=== PATIENT | male | born 1965 | race Caucasian/White ===

== ENCOUNTER 2023-12-30 07:08 | Emergency (ER) | payer BC, SELFPAY ==
[2023-12-30] VITALS (16 sets, daily range): BP systolic 101–198; BP diastolic 52–97; PULSE 46–58; RESP 16–24; TEMP 36.7; O2SAT 95–100; BMI 36.8
--- NOTE | 2023-12-30 07:13 | DI.RAD.S_ITS ---
PROCEDURE: XR CHEST 1V INDICATIONS: chest pain TECHNIQUE: One view of the chest was acquired. COMPARISON: None. FINDINGS: Surgical changes and devices: None. Lungs and pleura: Lungs are clear. No pleural effusions or pneumothorax. Mediastinum: Mediastinal contours appear normal. Heart size is normal. Bones and chest wall: No suspicious bony lesions. Overlying soft tissues appear unremarkable. IMPRESSION: No acute cardiopulmonary abnormality is seen. Dictated by: Harjit Toribio M.D. on 12/30/2023 at 8:57 Approved by: Harjit Toribio M.D. on 12/30/2023 at 8:57
--- NOTE | 2023-12-30 07:27 | ED_ITS ---
HPI - Chest Pain General Chief Complaint: Chest Pain Stated Complaint: chest pain, back pain Time Seen by Provider: 12/30/23 07:20 Source: patient Mode of arrival: Ambulatory Limitations: no limitations History of Present Illness HPI narrative: Patient is a 58-year-old male history of hypertension presenting today with chest pain. He reports that he is lost about 30 lb he has been doing really well with his diet last night he had pizza. Around 10:00 p.m. he started having chest pain and center of his chest radiating through to his back. He was unable to sleep last night could not get comfortable it is constant in nature. He feels a little nauseous no vomiting no significant shortness of breath. He has no known coronary artery disease he has never been a smoker. However his dad had his 1st heart attack in his 40s grandfather of a heart attack in his 50s. Related Data Allergies Allergy/AdvReac Type Severity Reaction Status Date / Time No Known Drug Allergies Allergy Verified 12/30/23 07:17 Patient History Social History Smoking Status: Never smoker Smoking Status: Never smoker Substance Use Type: does not use Exam Initial Vital Signs Initial Vital Signs: Vital Signs Pulse Oximetry 98 12/30/23 07:11 GENERAL: 58-year-old male appears uncomfortable sitting on edge of bed HEENT: Head atraumatic,EOMI, pupils reactive, face symmetric, moist mucous membranes CARDIOVASCULAR: Regular rate and rhythm without murmurs, rubs or gallops. RESPIRATORY: Breath sounds equal bilaterally, no wheezes rales or rhonchi. ABDOMEN: Soft, minimally tender epigastric region negative Ross's sign EXTREMITIES: Normal range of motion, no clubbing or edema. Neurovascularly intact NEUROLOGICAL: Alert and oriented x4.Normal gait and speech. SKIN: Warm, dry, no laceration, no petechiae, no rashes or lesions. Scores HEART Score Heart Score history: Slightly Suspicious Heart Score EKG: Normal Heart Score Age: 45-64 years old Heart Score risk factors: 1-2 risk factors Heart Score troponin: < or = to normal limit Heart Score Total: 2 Course Orders Ordered: ED Orders 12/30/23 07:13 XR chest 1V Stat EKG-12 Lead Stat 12/30/23 07:15 Complete Blood Count AUTO DIFF Stat D Dimer Stat PTT Partial Thromboplastin Rob Stat Prothrombin Time INR Stat 12/30/23 07:33 US abdomen limited Stat 12/30/23 08:19 Comprehensive Metabolic Panel Stat Lipase Stat Magnesium Stat Troponin & CK Cardiac Panel Stat Urine Microscopic Stat 12/30/23 10:04 Troponin & CK Cardiac Panel Stat 12/30/23 11:13 EKG-12 Lead Stat Discontinued Medications Aspirin (Aspirin 81 Mg Chew Tab) 324 mg PO NOW ONE Stop: 12/30/23 07:14 Last Admin: 12/30/23 07:15 Dose: Not Given Documented By: Hydromorphone HCl (Hydromorphone 0.5 Mg Inj) 0.5 mg IV NOW ONE Stop: 12/30/23 08:42 Last Admin: 12/30/23 08:44 Dose: 0.5 mg Documented By: Sodium Chloride (Normal Saline 0.9%) 1,000 mls @ 1,000 mls/hr IV BOLUS ONE Stop: 12/30/23 08:55 Last Infusion: 12/30/23 08:48 Dose: Infused Documented By: Admin: 12/30/23 07:50 Dose: 1,000 mls/hr Documented By: Ketorolac Tromethamine (Ketorolac 30 Mg/Ml Vial) 15 mg IV NOW ONE Stop: 12/30/23 07:35 Last Admin: 12/30/23 07:42 Dose: 15 mg Documented By: Nitroglycerin (Nitroglycerin 0.4 Mg Sl Tab) 0.4 mg SL NOW ONE Stop: 12/30/23 07:34 Last Admin: 12/30/23 07:37 Dose: 0.4 mg Documented By: Ondansetron HCl (Ondansetron 4 Mg/2 Ml Inj) 4 mg IV NOW ONE Stop: 12/30/23 07:50 Last Admin: 12/30/23 07:51 Dose: 4 mg Documented By: Pantoprazole Sodium (Pantoprazole 40 Mg Vial) 40 mg IV NOW ONE Stop: 12/30/23 07:34 Last Admin: 12/30/23 07:37 Dose: 40 mg Documented By: Vital Signs Vital signs: Vital Signs - 8 hr 12/30/23 08:19 12/30/23 08:19 12/30/23 08:30 Pulse Rate 46 L 46 L Respiratory Rate 16 16 Blood Pressure 149/70 H Pulse Oximetry 98 98 12/30/23 08:30 12/30/23 08:45 12/30/23 08:45 Pulse Rate 53 L Respiratory Rate 20 Blood Pressure 129/56 L 139/65 Pulse Oximetry 98 12/30/23 09:00 12/30/23 09:00 12/30/23 09:30 Pulse Rate 53 L Respiratory Rate 16 Blood Pressure 134/67 135/64 Pulse Oximetry 95 12/30/23 09:30 12/30/23 10:00 12/30/23 10:00 Pulse Rate 56 L 56 L Respiratory Rate 16 17 Blood Pressure 135/70 Pulse Oximetry 97 97 12/30/23 10:30 12/30/23 10:30 12/30/23 11:00 Pulse Rate 57 L 58 L Respiratory Rate 17 18 Blood Pressure 121/57 L Pulse Oximetry 98 98 12/30/23 11:00 Pulse Rate Respiratory Rate Blood Pressure 122/58 L Pulse Oximetry MDM - Chest Pain Lab Data 12/30/23 07:15 12/30/23 08:19 Labs: Lab Results 12/30/23 12/30/23 12/30/23 Range/Units 07:15 08:19 10:04 WBC 13.7 H (4.5-11.0) X10^3/uL RBC 5.18 (4.5-5.9) X10^6/uL Hgb 14.8 (13.5-17.5) g/dL Hct 43.9 (41-53) % MCV 84.6 (80-100) fL MCH 28.5 (26-34) PG MCHC 33.7 (30-36) % RDW 15.3 H (11.6-14.8) % Plt Count 187 (150-400) X10^3/uL Neut % (Auto) 89.5 H (50-75) % Lymph % (Auto) 7.4 L (25-40) % [place] % (Auto) 2.5 L (3-14) % Eos % (Auto) 0.2 L (2-4) % Baso % (Auto) 0.4 (0-2) % Neut # (Auto) 33354 H (4710-7385) /uL Lymph # (Auto) 1000 L (6815-8952) /uL [place] # (Auto) 300 (0-900) /uL Eos # (Auto) 0 (0-450) /uL Baso # (Auto) 100 (0-100) /uL PT 11.6 (9.4-12.5) SECONDS INR 1.0 (0.9-1.3) APTT 35 (25.1-36.5) SECONDS D-Dimer 492 (<500) ng/ml Sodium 139 (137-145) mmol/L Potassium 4.1 (3.4-5.1) mmol/L Chloride 104 (98-107) mmol/L Carbon Dioxide 28 (22-32) mmol/L BUN 23 H (9-20) mg/dL Creatinine 0.78 (0.66-1.25) mg/dL Estimated GFR > 60 (>60) mL/min BUN/Creatinine Ratio 29.5 H (6-22) Glucose 146 H (80-110) mg/dL Calcium 9.0 (8.4-10.2) mg/dL Magnesium 2.2 (1.6-2.3) mg/dL Total Bilirubin 0.9 (0.2-1.3) mg/dL AST 32 (17-59) IU/L ALT 30 (<50) IU/L Alkaline Phosphatase 98 (38-126) U/L Total Creatine Kinase 120 108 (55-170) U/L Troponin I < 0.012 < 0.012 (0.01-0.034) ng/mL Total Protein 7.2 (6.3-8.2) g/dL Albumin 4.6 (3.5-5.0) g/dL Globulin 2.6 (1.7-4.1) g/dL Albumin/Globulin Ratio 1.8 (1.0-2.8) Lipase 106 (23-300) U/L Urine RBC None seen (0-5/HPF) Urine WBC None seen (0-5/HPF) Ur Squamous Epith Cells None seen (0-5/HPF) Urine Bacteria None seen (None) Ur Culture Indicated? Cult not indicated Vol Urine Centrifuged 10ml (spun) Urine Dip Bedside Urine Glucose 1000 mg/dl Bedside Urine Bilirubin - Negative Bedside Urine Ketone - Negative Urine Specific [place] 1.010 Bedside Urine Occult Blood - Negative Bedside Urine pH 8.0 Bedside Urine Protein +/- 15 Bedside Urine Urobilinogen - Negative Bedside Urine Nitrite - Negative Bedside Urine Leukocytes - Negative Esterase Imaging Data Chest x-ray: Radiologist's Impression: PROCEDURE: XR CHEST 1V INDICATIONS: chest pain TECHNIQUE: One view of the chest was acquired. COMPARISON: None. FINDINGS: Surgical changes and devices: None. Lungs and pleura: Lungs are clear. No pleural effusions or pneumothorax. Mediastinum: Mediastinal contours appear normal. Heart size is normal. Bones and chest wall: No suspicious bony lesions. Overlying soft tissues appear unremarkable. IMPRESSION: No acute cardiopulmonary abnormality is seen. Dictated by: Harjit Toribio M.D. on 12/30/2023 at 8:57 US - abdomen: Radiologist's Impression: PROCEDURE: XR CHEST 1V INDICATIONS: chest pain TECHNIQUE: One view of the chest was acquired. COMPARISON: None. FINDINGS: Surgical changes and devices: None. Lungs and pleura: Lungs are clear. No pleural effusions or pneumothorax. Mediastinum: Mediastinal contours appear normal. Heart size is normal. Bones and chest wall: No suspicious bony lesions. Overlying soft tissues appear unremarkable. IMPRESSION: No acute cardiopulmonary abnormality is seen. Dictated by: Harjit Toribio M.D. on 12/30/2023 at 8:57 ECG Data Attestation: I personally reviewed and interpreted this ECG as follows: Interpretation: Normal sinus rhythm rate 50 WA interval 170 QRS [address] changes or T- wave inversions EKG 2. Sinus rhythm rate 57 no acute ischemic changes similar to prior previous MDM Narrative Medical decision making narrative: Patient 58-year-old male presents today with chest burning sensation that has been constant. He has no known cardiac disease but does have significant family history. Blood work has been reviewed 2- troponins no anemia leukocytosis THA electrolyte abnormality, lipase within normal limits Chest x-ray has been reviewed no acute cardiopulmonary process Ultrasound reviewed no cholelithiasis or acute cholecystitis 2 EKGs have been reviewed Patient has been given multiple medications including Zofran Protonix nitroglycerin and Toradol along with Dilaudid. He ultimately is feeling significantly better. Pain would be atypical for cardiac although still possible. He has no EKG changes and 2- troponins along with heart score of 2. He has feeling a lot better. He was having some mild epigastric pain and right upper quadrant pain cholelithiasis cholecystitis considered. No evidence of pancreatitis on labs. Abdomen is otherwise soft and nontender. Really was having some burning sensation in his chest. At this time I see no need for any further imaging or studies. Discussed with he and family at bedside would recommend further outpatient workup including stress test and/or echocardiogram. He also understands that if his pain should worsen or change in any way he should return to the nearest emergency department. Discharge Plan Departure Patient Disposition: Home Clinical Impression: Atypical chest pain, Benign liver cyst Instructions: DI for Atypical Chest Pain Activity Restrictions/Additional Instructions: *You have been diagnosed with atypical chest pain, liver cysts *What to do: At this time I encourage you discuss with your primary care provider further cardiac testing stress test and/or echocardiogram. You were also found to have liver cyst on your ultrasound which are unlikely causing your pain or discomfort. *Continue to take medications as directed Tylenol Motrin as needed *Follow up with your primary care provider in 2-3 days or call [phone] *Return to ER if you should have increasing chest pain shortness of breath persistent nausea vomiting worsening abdominal pain or any new, worsening or concerning symptoms Stand Alone Forms: Patient Portal/API
[2023-12-30 07:32] LABS: Add Manual Diff / Slide Review NO; Basophils Absolute Auto 100 /uL (0-100); Basophils Percent Auto 0.4 % (0-2); Eosinophils Absolute Auto 0 /uL (0-450); Eosinophils Percent Auto 0.2 % (2-4); Hematocrit 43.9 % (41-53); Hemoglobin 14.8 g/dL (13.5-17.5); Lymphocytes Absolute Auto 1000 /uL (1100-4500); Lymphocytes Percent Auto 7.4 % (25-40); Mean Corpuscular HGB Conc 33.7 % (30-36); Mean Corpuscular Hemoglobin 28.5 PG (26-34); Mean Corpuscular Volume 84.6 fL (80-100); Monocytes Absolute Auto 300 /uL (0-900); Monocytes Percent Auto 2.5 % (3-14); Neutrophils Absolute Auto 12200 /uL (1500-7000); Neutrophils Percent Auto 89.5 % (50-75); Platelet Count 187 X10^3/uL (150-400); Red Blood Cell Count 5.18 X10^6/uL (4.5-5.9); Red Cell Distribution Width 15.3 % (11.6-14.8); White Blood Cell Count 13.7 X10^3/uL (4.5-11.0)
--- NOTE | 2023-12-30 07:33 | DI.US.S_ITS ---
PROCEDURE: US ABDOMEN LIMITED INDICATIONS: ruq TECHNIQUE: Real-time focused scanning was performed of the abdomen, with image documentation. COMPARISON: None. FINDINGS: Liver measures 17-18 cm. Multiple cysts are present, measuring up to 5.6 x 4.3 and 3.4 x 3.2 cm. No suspicious solid components. Gallbladder is unremarkable. CBD measures 2 mm. Pancreas is unremarkable. IMPRESSION: No acute right upper quadrant abnormality. Dictated by: Barry White M.D. on 12/30/2023 at 9:18 Approved by: Barry White M.D. on 12/30/2023 at 9:19
[2023-12-30] MEDS: PANTOPRAZOLE 40 MG VIAL IV (07:37)
[2023-12-30] MEDS: NITROGLYCERIN 0.4 MG SL TAB SL (07:37)
[2023-12-30 07:39] LABS: Prothrombin Time 11.6 SECONDS (9.4-12.5)
[2023-12-30 07:42] LABS: PTT Partial Thromboplastin Tim 35 SECONDS (25.1-36.5)
[2023-12-30] MEDS: KETOROLAC 30 MG/ML VIAL 15 MG IV (07:42)
[2023-12-30 07:49] LABS: D Dimer 492 ng/ml (<500)
[2023-12-30] MEDS: SODIUM CHLORIDE 0.9% 1,000 ML 1000 ML IV (07:50)
[2023-12-30] MEDS: ONDANSETRON 4 MG/2 ML INJ IV (07:51)
--- NOTE | 2023-12-30 08:03 | PC.NURSE ---
Pt did not tolerate nitro SL x1 well. Pt became lightheaded, nauseous, and hot. SBP from 170s to 101. Provider made aware. 0.9% bolus started and zofran IVP given per MAR with improvement of blood pressure.
[2023-12-30 08:34] LABS: Urine Volume 10mL (spun)
[2023-12-30 08:36] LABS: Bacteria Urine None Seen; Culture Indicated Urine Cult Not Indicated; RBC Urine None Seen (0-5/HPF); Squamous Epithelial Cell Urine None Seen (0-5/HPF); WBC Urine None Seen (0-5/HPF)
[2023-12-30] MEDS: HYDROMORPHONE 0.5 MG INJ IV (08:44)
[2023-12-30 08:45] LABS: Alanine Aminotransferase 30 IU/L (<50); Albumin 4.6 g/dL (3.5-5.0); Albumin Globulin Ratio 1.8 (1.0-2.8); Alkaline Phosphatase 98 U/L (38-126); Aspartate Aminotransferase 32 IU/L (17-59); BUN Creatinine Ratio 29.5 (6-22); Bilirubin Total 0.9 mg/dL (0.2-1.3); Blood Urea Nitrogen 23 mg/dL (9-20); Carbon Dioxide 28 mmol/L (22-32); Chloride 104 mmol/L (98-107); Creatine Kinase 120 U/L (55-170); Estimated Glomerular Filt Rate > 60 mL/min (>60); Globulin 2.6 g/dL (1.7-4.1); Glucose 146 mg/dL (80-110); HEMOLYSIS 49 (0-50); Lipase 106 U/L (23-300); Magnesium 2.2 mg/dL (1.6-2.3); Potassium 4.1 mmol/L (3.4-5.1); Sodium 139 mmol/L (137-145); Total Protein 7.2 g/dL (6.3-8.2)
[2023-12-30 08:56] LABS: Troponin I < 0.012 ng/mL (0.01-0.034)
[2023-12-30 10:37] LABS: Creatine Kinase 108 U/L (55-170)
[2023-12-30 10:49] LABS: Troponin I < 0.012 ng/mL (0.01-0.034)
== END 2023-12-30 11:15 | disposition home or self-care (01) ==
PROVIDERS: Emergency Provider Emergency Medicine
DX: R07.89 Other chest pain (principal); K76.89 Other specified diseases of liver
CPT/HCPCS: 36415; 71045; 76705; 80053; 81003; 81015; 82550; 83690; 83735; 84484; 85025; 85379; 85610; 85730; 93005; 99284; C9113; J1170; J1885; J2405

== ENCOUNTER 2023-12-31 17:55 | Inpatient (IN) | payer BC, SELFPAY ==
[2023-12-31] VITALS (12 sets, daily range): BP systolic 111–148; BP diastolic 57–81; PULSE 62–77; RESP 12–22; TEMP 36.9; O2SAT 94–98; BMI 36.8
--- NOTE | 2023-12-31 18:07 | DI.RAD.S_ITS ---
PROCEDURE: XR CHEST 1V INDICATIONS: chest pain TECHNIQUE: One view of the chest was acquired. COMPARISON: [facility], CR, XR CHEST 1V, 12/30/2023, 7:16. FINDINGS: Surgical changes and devices: None. Lungs and pleura: Lungs are clear. No pleural effusions or pneumothorax. Mediastinum: Mediastinal contours appear normal. Heart size is normal. Bones and chest wall: No suspicious bony lesions. Overlying soft tissues appear unremarkable. IMPRESSION: No acute cardiopulmonary abnormality is seen. Dictated by: Thomas Clifford M.D. on 12/31/2023 at 17:50 Approved by: Thomas Clifford M.D. on 12/31/2023 at 17:51
[2023-12-31 18:18] LABS: Add Manual Diff / Slide Review NO; Basophils Absolute Auto 100 /uL (0-100); Basophils Percent Auto 0.4 % (0-2); Eosinophils Absolute Auto 100 /uL (0-450); Eosinophils Percent Auto 0.4 % (2-4); Hematocrit 39.3 % (41-53); Hemoglobin 13.2 g/dL (13.5-17.5); Lymphocytes Absolute Auto 1300 /uL (1100-4500); Lymphocytes Percent Auto 5.6 % (25-40); Mean Corpuscular HGB Conc 33.6 % (30-36); Mean Corpuscular Hemoglobin 28.6 PG (26-34); Mean Corpuscular Volume 85.3 fL (80-100); Monocytes Absolute Auto 1400 /uL (0-900); Monocytes Percent Auto 6.4 % (3-14); Neutrophils Absolute Auto 19700 /uL (1500-7000); Neutrophils Percent Auto 87.2 % (50-75); Platelet Count 141 X10^3/uL (150-400); Red Cell Distribution Width 15.6 % (11.6-14.8); White Blood Cell Count 22.6 X10^3/uL (4.5-11.0)
[2023-12-31 18:24] LABS: INR 1.5 (0.9-1.3); Prothrombin Time 17.5 SECONDS (9.4-12.5)
[2023-12-31 18:27] LABS: PTT Partial Thromboplastin Tim 33 SECONDS (25.1-36.5)
[2023-12-31 18:47] LABS: Alanine Aminotransferase 25 IU/L (<50); Albumin 4.1 g/dL (3.5-5.0); Albumin Globulin Ratio 1.5 (1.0-2.8); Alkaline Phosphatase 91 U/L (38-126); Aspartate Aminotransferase 27 IU/L (17-59); Blood Urea Nitrogen 29 mg/dL (9-20); Calcium 9.2 mg/dL (8.4-10.2); Carbon Dioxide 30 mmol/L (22-32); Chloride 103 mmol/L (98-107); Creatine Kinase 233 U/L (55-170); Estimated Glomerular Filt Rate > 60 mL/min (>60); Globulin 2.7 g/dL (1.7-4.1); Glucose 120 mg/dL (80-110); HEMOLYSIS < 15 (0-50); Lipase 61 U/L (23-300); Magnesium 2.2 mg/dL (1.6-2.3); Potassium 3.8 mmol/L (3.4-5.1); Sodium 138 mmol/L (137-145); Total Protein 6.8 g/dL (6.3-8.2)
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
[2023-12-31 18:58] LABS: Troponin I < 0.012 ng/mL (0.01-0.034)
[2023-12-31 19:16] LABS: Procalcitonin 0.436 ng/mL (<0.5)
[2023-12-31] MEDS: ONDANSETRON 4 MG/2 ML INJ IV (19:25)
[2023-12-31] MEDS: SODIUM CHLORIDE 0.9% 1,000 ML 1000 ML IV (19:25)
[2023-12-31] MEDS: MORPHINE 4 MG/ML INJ IV (19:26)
--- NOTE | 2023-12-31 19:56 | DI.CT.S_ITS ---
PROCEDURE: CT ANGIO CHEST ABDOMEN PELVIS INDICATIONS: epigastric/back/ruq seen, +nausea/ constipation TECHNIQUE: Precontrast 5 mm thick sections acquired from the lung apices to the iliac crests. After the administration of intravenous contrast, 2.5 mm thick sections again acquired from the lung apices to the iliac crests. Maximum intensity projection (MIP) oblique sagittal and coronal reformats were then acquired. For radiation dose reduction, the following was used: automated exposure control. COMPARISON: [facility], , [place] ABDOMEN LIMITED, 12/30/2023, 8:10. FINDINGS: Image quality: Diagnostic. AORTA: No aortic aneurysm. No acute aortic syndrome. Mild atherosclerotic vascular calcifications. CHEST: Lower Neck: No enlarged lymph nodes. Thyroid: No thyroid nodules which require sonographic evaluation. Axillae: No enlarged lymph nodes. Chest Wall: Unremarkable. Lungs and Pleura: No pneumothorax or pleural effusions. Left upper lobe subpleural 4 mm nodule (6/125). Additional 4 mm left upper lobe nodule (6/114). Linear atelectasis versus scarring in the right lower lobe. Right middle lobe subpleural nodule measuring 5 mm (6/176). Few additional nodules measuring less than 5 mm are noted.. Heart: Heart size is normal. Mild coronary artery calcifications. No pericardial effusion. Thoracic Vessels: Pulmonary arteries demonstrate normal size. Mediastinum and Vivien: No enlarged lymph nodes. Esophagus: No wall thickening. No hiatal hernia. ABDOMEN: Liver: No solid mass. Multiple simple appearing hepatic cysts. Gallbladder: Gallbladder is distended. No radiopaque gallstones are seen. Pericholecystic inflammation and trace free fluid are noted. Biliary ducts: No biliary dilation. Pancreas: No ductal dilation. Spleen: Size is within normal limits. Adrenal Glands: Left adrenal nodule measuring 2.8 cm. Kidneys and Ureters: No hydronephrosis. No solid mass. No complex renal cystic lesion which requires follow up. Large left renal simple appearing cyst. Punctate left renal calcifications, nonobstructing. Stomach and Bowel: Normal colonic caliber, without significant wall thickening. Diverticulosis without evidence of acute diverticulitis. Peritoneum: No abnormal intraperitoneal fluid. No free air. Ventral Wall: No hernia. Abdominal Nodes: No retroperitoneal or mesenteric adenopathy by size criteria. Vessels: Inferior vena cava is normal in size. PELVIS: Pelvic Organs: Unremarkable. Bladder: Unremarkable. Pelvic Nodes: No enlarged lymph nodes. Miscellaneous: No inguinal hernias are seen. Bones: L4-5 posterior spinal fixation hardware. Degenerative changes of the spine. IMPRESSION: 1. No acute aortic pathology. 2. Gallbladder is distended with pericholecystic inflammation and trace free fluid. Findings may represent acalculous cholecystitis given no gallstones seen on prior ultrasound. 3. Left adrenal nodule measuring 2.8 cm, indeterminate. Recommend nonurgent adrenal protocol MRI or CT for further evaluation. 4. Diverticulosis without evidence of acute diverticulitis. 5. Scattered pulmonary nodules measuring up to 5 mm. Per Fleischner criteria, if patient is low risk, no follow-up is necessary. If patient is high risk, [address] chest can be obtained. Dictated by: Thomas Clifford M.D. on 12/31/2023 at 19:05 Approved by: Thomas Clifford M.D. on 12/31/2023 at 19:14
[2023-12-31] MEDS: PIPERACILLIN/TAZO 4.5 GM in SODIUM CHLORIDE 0.9% 100 ML IV (20:26)
[2023-12-31] MEDS: HYDROMORPHONE 0.5 MG INJ IV (20:45)
[2023-12-31] MEDS: GABAPENTIN 300 MG CAPSULE PO (21:49)
[2023-12-31] MEDS: OXYCODONE IR 5 MG TABLET PO (21:49)
[2023-12-31] MEDS: LACTATED RINGERS 1,000 ML 100 ML IV (22:26)
[2023-12-31] MEDS: IBUPROFEN 600 MG TABLET PO (22:27)
[2023-12-31] MEDS: HEPARIN 5,000 UNIT/ML VIAL 5000 UNIT SUBCUT (22:27)
[2023-12-31] MEDS: HYDROCODONE/ACET 5/325 TABLET 2 TAB PO (22:59)
[2024-01-01] VITALS (16 sets, daily range): BP systolic 93–118; BP diastolic 46–69; PULSE 62–100; RESP 11–16; TEMP 36.2–36.9; O2SAT 93–98; BMI 36.8
--- NOTE | 2024-01-01 | PATH_ITS ---
[facility] Accession Number: [id number] No. of containers..01 Tissue . 01 Material submitted: . gallbladder - GALLBLADDER . 01 Diagnosis: GALLBLADDER, CHOLECYSTECTOMY: Acute necrotizing cholecystitis. [facility] 01/05/2024 1140 Local . 01 Electronically signed: . Sienna Irby MD, Pathologist NPI- [id number] . 01 Gross description: . Received in formalin with two identifiers and gallbladder, is a disrupted gallbladder, 10.2 x 5.0 x 2.3 cm, with several full thickness defects up to 1.2 cm in greatest dimension. The presumed cystic duct margin is patent and measures 1.0 cm in diameter. The margin is inked blue and no pericystic lymph node is identified. The lumen contains green-brown mucoid material. The mucosa is green to brown and roughened with adherent green material consistent with exudate. No calculi are identified in the lumen or the container. The barnes average 0.3 cm thick, and loss prevention representative sections to include the presumed cystic duct margin and full thickness sections are submitted in A1. ([id number]) /MRV 01/04/2024 1722 Local . 01 Pathologist provided ICD-10: K81.0 . 01 CPT . 359246 Specimen Comment: A courtesy copy of this report has been sent to [phone] Performed at: [address] [address], [place], [place] [id number] MD Jacek Zhang MD Phone: [phone]
[2024-01-01] MEDS: OXYCODONE IR 5 MG TABLET PO ×3 (02:05→10:51)
[2024-01-01] MEDS: PIPERACILLIN/TAZO 3.375 GM in SODIUM CHLORIDE 0.9% 100 ML IV ×3 (04:32→21:25)
[2024-01-01] MEDS: IBUPROFEN 600 MG TABLET PO ×3 (04:32→21:25)
[2024-01-01] MEDS: HYDROCODONE/ACET 5/325 TABLET 2 TAB PO ×2 (04:32→20:22)
[2024-01-01 04:57] LABS: Add Manual Diff / Slide Review NO; Basophils Absolute Auto 100 /uL (0-100); Basophils Percent Auto 0.6 % (0-2); Eosinophils Absolute Auto 0 /uL (0-450); Eosinophils Percent Auto 0.2 % (2-4); Hematocrit 35.8 % (41-53); Hemoglobin 11.9 g/dL (13.5-17.5); Lymphocytes Absolute Auto 1300 /uL (1100-4500); Lymphocytes Percent Auto 6.4 % (25-40); Mean Corpuscular HGB Conc 33.3 % (30-36); Mean Corpuscular Hemoglobin 28.5 PG (26-34); Mean Corpuscular Volume 85.7 fL (80-100); Monocytes Absolute Auto 1300 /uL (0-900); Monocytes Percent Auto 6.2 % (3-14); Neutrophils Absolute Auto 18000 /uL (1500-7000); Neutrophils Percent Auto 86.6 % (50-75); Platelet Count 133 X10^3/uL (150-400); Red Blood Cell Count 4.18 X10^6/uL (4.5-5.9); Red Cell Distribution Width 15.4 % (11.6-14.8); White Blood Cell Count 20.8 X10^3/uL (4.5-11.0)
[2024-01-01 05:10] LABS: INR 1.5 (0.9-1.3); Prothrombin Time 17.7 SECONDS (9.4-12.5)
[2024-01-01 05:17] LABS: Alanine Aminotransferase 36 IU/L (<50); Albumin 3.6 g/dL (3.5-5.0); Albumin Globulin Ratio 1.4 (1.0-2.8); Alkaline Phosphatase 112 U/L (38-126); Aspartate Aminotransferase 38 IU/L (17-59); Bilirubin Total 1.2 mg/dL (0.2-1.3); Blood Urea Nitrogen 25 mg/dL (9-20); Calcium 8.7 mg/dL (8.4-10.2); Carbon Dioxide 31 mmol/L (22-32); Chloride 105 mmol/L (98-107); Estimated Glomerular Filt Rate > 60 mL/min (>60); Globulin 2.5 g/dL (1.7-4.1); Glucose 92 mg/dL (80-110); HEMOLYSIS < 15 (0-50); Potassium 3.9 mmol/L (3.4-5.1); Sodium 139 mmol/L (137-145); Total Protein 6.1 g/dL (6.3-8.2)
[2024-01-01] MEDS: GABAPENTIN 300 MG CAPSULE PO ×3 (07:55→21:25)
--- NOTE | 2024-01-01 08:48 | P.HP_ITS ---
History of Present Illness History of Present Illness Date Patient Seen: 01/01/24 Time Patient Seen: 08:48 Chief complaint: chest pain/trunk pain/fever Narrative: Seen previously for same pain, Normal US and labs, not cardiac. Pain returned with eating oysters. RUQ sharp and dull. anorexia. CT scan concerning for cholecystitis w/o stones. [facility] Social History Smoking Status: Never smoker Meds Home Medications and Allergies Home Medications Medication Instructions Recorded Confirmed Type dapagliflozin propanediol 10 mg 10 mg PO DAILY 12/31/23 12/31/23 History tablet (Farxiga) ezetimibe 10 mg tablet 10 mg PO DAILY 12/31/23 12/31/23 History losartan 50 mg tablet 50 mg PO DAILY 12/31/23 12/31/23 History metoprolol succinate 50 mg 50 mg PO BID 12/31/23 12/31/23 History tablet,extended release 24 hr omeprazole 20 mg capsule,delayed 20 mg PO DAILY 12/31/23 12/31/23 History release rosuvastatin 20 mg tablet 20 mg PO ONCE PM 12/31/23 12/31/23 History sertraline 25 mg tablet 25 mg PO DAILY 12/31/23 12/31/23 History tadalafil 2.5 mg tablet 2.5 mg PO DAILY PRN Sexual Activity 12/31/23 12/31/23 History Allergies Allergy/AdvReac Type Severity Reaction Status Date / Time No Known Drug Allergies Allergy Verified 12/30/23 07:17 Review of Systems Review of Systems ROS: Yes All systems reviewed with the patient and are negative except as otherwise documented Exam Vital Signs (past 8 hours): - 01/01/24 04:56 Pulse Rate 78 Respiratory Rate 15 Blood Pressure 107/55 L Pulse Oximetry 95 Oxygen Delivery Method Room Air Oxygen Delivery Method Room Air Const General: cooperative and ill appearing Nutritional Appearance: obese HENMT Head: normal to inspection, normocephalic and atraumatic Eyes Sclera: sclerae normal Neck Neck: no meningeal signs and trachea midline Resp Effort & Inspection: normal respiratory effort and able to speak in complete sentences Cardio Rate: regular rate Rhythm: regular rhythm GI Inspection: distended and obesity Palpation: soft and tender (RUQ) Skin General: turgor normal and No atrophy Neuro General: patient alert, patient awake and patient oriented x3 Extrem General: full ROM Psych Appearance: grossly normal Mental Status: mental status grossly normal Attitude: cooperative Judgment: judgment good Objective Labs 01/01/24 04:40 01/01/24 04:40 Labs: Laboratory Results - last 24 hr 12/31/23 01/01/24 18:07 04:40 WBC 22.6 H D 20.8 H RBC 4.60 4.18 L Hgb 13.2 L 11.9 L Hct 39.3 L 35.8 L MCV 85.3 85.7 MCH 28.6 28.5 MCHC 33.6 33.3 RDW 15.6 H 15.4 H Plt Count 141 L 133 L Neut % (Auto) 87.2 H 86.6 H Lymph % (Auto) 5.6 L 6.4 L [place] % (Auto) 6.4 6.2 Eos % (Auto) 0.4 L 0.2 L Baso % (Auto) 0.4 0.6 Neut # (Auto) 92423 H 47463 H Lymph # (Auto) 1300 1300 [place] # (Auto) 1400 H 1300 H Eos # (Auto) 100 0 Baso # (Auto) 100 100 PT 17.5 H D 17.7 H INR 1.5 H 1.5 H APTT 33 Sodium 138 139 Potassium 3.8 3.9 Chloride 103 105 Carbon Dioxide 30 31 BUN 29 H 25 H Creatinine 1.32 H 1.00 Estimated GFR > 60 > 60 BUN/Creatinine Ratio 22.0 25.0 H Glucose 120 H 92 Lactate 1.0 Calcium 9.2 8.7 Magnesium 2.2 Total Bilirubin 1.0 1.2 AST 27 38 ALT 25 36 Alkaline Phosphatase 91 112 Total Creatine Kinase 233 H Troponin I < 0.012 Total Protein 6.8 6.1 L Albumin 4.1 3.6 Globulin 2.7 2.5 Albumin/Globulin Ratio 1.5 1.4 Lipase 61 Procalcitonin 0.436 Assessment & Plan Assessment & Plan narrative: Acalculous cholecystitis Laparoscopic cholecystecomy Time Spent With Patient Time with patient: less than 30 minutes
[2024-01-01] MEDS: LACTATED RINGERS 1,000 ML 42 ML IV (08:52)
--- NOTE | 2024-01-01 09:17 | SUR.OPER ---
Supine on padded OR bed, head on pillow, arms secured on padded arm boards at <90 degrees abduction, legs uncrossed, safety belt at thigh, tape over blanket over lower legs.
[2024-01-01] MEDS: ACETAMINOPHEN IV 1,000 MG/100 ML VIAL 400 MG IV (09:28)
[2024-01-01] MEDS: BUPIVACAINE 0.5% (PF) 30 ML, EPINEPHrine 0.15 MG INJ (09:29)
[2024-01-01] MEDS: TRANEXAMIC ACID 1,000 MG in SODIUM CHLORIDE 0.9% 100 ML 200 MG IV (09:36)
--- NOTE | 2024-01-01 10:28 | P.OP_ITS ---
Operative Date/Time/Diagnoses Date of procedure: 01/01/24 Time of procedure: 10:28 Pre-op diagnosis: Acalculous cholecystitis Post-op diagnosis: same Procedure & Clinicians Procedure: Laparoscopic cholecystectomy Same procedure as scheduled: Yes Indications: Acalculous cholecystitis Surgeon: Malena Cristina Click Yes if Unassisted: Yes Anesthesia Type: General and Local Operative Notes Findings: Gangrenous acalculous cholecystitis Closure Type: primary Specimen(s): other (Gallbladder) Applied: drain(s) (15 Ayaan-Benítez drain) Estimated Blood Loss (mL): 100 Blood products transfused: none Procedure in detail: Preop diagnosis: Acalculous cholecystitis Postop diagnosis: Acalculous gangrenous cholecystitis Operative procedure: Laparoscopic cholecystectomy Surgeon: Chrissy Cristina MD Anesthetic: General with ET tube intubation along with local Findings: Gangrenous acalculous cholecystitis Procedure: Patient placed in a supine position. Prepped and draped sterile fashion to expose his abdomen. Infraumbilical port site was placed using open technique a 12 mm port. Insufflation began all other ports were placed under direct vision including a 10 mm port in the midepigastrium and 2 5 mm ports in the right lateral abdomen. Gallbladder was grasped and pushed cephalad for exposure. Cystic duct was identified along with the cystic artery which in a bundle were clipped twice proximally once distally and transected. A branch of the artery bled and received 2 more clips for hemostasis. Gallbladder was removed from the fossa bed with electrocautery and blunt dissection. Due to the degree of bleeding in the preoperative INR of 1.5 he was given TXA during the procedure and Surgicel was placed into the operative bed prior to ending the procedure. Gallbladder was put into an Endo-Catch bag and pulled through the infraumbilical port site intact. I then placed a 15 TASHIA drain into the operative site for monitoring for bile leaks and to remove residual blood clots. I then removed all ports and began closure. Closure consisted of interrupted 0 Vicryl for fascial closure. Skin was closed with a running 4-0 Vicryl. Steri- Strips and sterile dressings were placed. Patient was awakened, extubated, taken to recovery room in stable condition. Needle, instrument, sponge counts were correct. Blood loss: 100 mL Specimen: Gallbladder Complications: none Post-operative Condition: stable Disposition: PACU
[2024-01-01] MEDS: HYDROMORPHONE 1 MG INJ IV ×2 (10:47→10:54)
[2024-01-01] MEDS: hydrOXYzine 50 MG/ML INJ 25 MG IM (10:51)
[2024-01-01] MEDS: ONDANSETRON 4 MG/2 ML INJ IV (10:51)
--- NOTE | 2024-01-01 11:07 | SUR.PHASEI ---
Right sided incision where TASHIA drain inserts draining moderate amount of blood; Dr Cristina aware. Site reinforced with gauze and large tegaderm.
[2024-01-01] MEDS: LACTATED RINGERS 1,000 ML 1000 ML IV (14:50)
--- NOTE | 2024-01-01 16:59 | CM.DPNOTE ---
DCP Note PHYSICAL SCIENCE AIDE reviewed EMR. PHYSICAL SCIENCE AIDE unable to complete DCP assessment today due to triaging needs. rosa maria alvarado with Dr. Crsitina Tuesday, pt may dc later in day Tuesday vs Tuesday. Per chart review, pt is a 58yo M here from [place] visiting family. From nursing staff/chart review, no obvious CM/DCP needs. Plan: anticipate home with family when medically stable. CM team will continue to follow as needed. EVELYN Higgins
--- NOTE | 2024-01-01 17:18 | PC.NURSE ---
Patient arrived to Room 212 at 0730, he is A&OX4, on RA. VSS, afebrile on RA. He is pleasant and independent, he reports abdominal pain to R side 5/10. He is medicated with scheduled pain medication and prn oxycodone. PRE OP RN arrives to take patient by bed at approximately 0830. He returns this at 1120 this a.m. with TASHIA drain. He is very hypotensive and slightly diaphoretic. He denies dizziness but continues to fall asleep while talking. He was placed on 2 LNC in PACU due to shallow breathing. MD notified of BP 75/40 while sitting up in the chair and again after lying patient back down in bed. Per orders given a 1 Liter bolus of LR. Drain to RLQ putting out moderate serosanguineous fluid, about 50 cc every 1-2 hours. Continuous monitoring.
[2024-01-01] MEDS: HEPARIN 5,000 UNIT/ML VIAL 5000 UNIT SUBCUT (21:24)
[2024-01-01] MEDS: ATORVASTATIN 20 MG TABLET 40 MG PO (21:25)
[2024-01-01] MEDS: METOPROLOL ER 50 MG TABLET PO (21:26)
[2024-01-01] MEDS: SERTRALINE 50 MG TABLET 25 MG PO (21:26)
[2024-01-02] VITALS: BP 134/65; PULSE 100; RESP 16; TEMP 37.9; O2SAT 93
[2024-01-02] MEDS: IBUPROFEN 600 MG TABLET PO ×4 (03:07→20:36)
[2024-01-02] MEDS: PIPERACILLIN/TAZO 3.375 GM in SODIUM CHLORIDE 0.9% 100 ML IV ×3 (04:58→20:26)
[2024-01-02] MEDS: HYDROCODONE/ACET 5/325 TABLET 2 TAB PO ×2 (05:12→17:00)
[2024-01-02] MEDS: PANTOPRAZOLE DR 20 MG TABLET PO (05:18)
[2024-01-02 05:32] VITALS: BP 116/72; PULSE 81; RESP 18; TEMP 36.1; O2SAT 92
[2024-01-02 07:56] LABS: Add Manual Diff / Slide Review NO; Basophils Absolute Auto 0 /uL (0-100); Basophils Percent Auto 0.1 % (0-2); Eosinophils Absolute Auto 0 /uL (0-450); Hematocrit 29.1 % (41-53); Hemoglobin 9.8 g/dL (13.5-17.5); Lymphocytes Absolute Auto 600 /uL (1100-4500); Lymphocytes Percent Auto 4.7 % (25-40); Mean Corpuscular HGB Conc 33.5 % (30-36); Mean Corpuscular Hemoglobin 28.5 PG (26-34); Mean Corpuscular Volume 85.1 fL (80-100); Monocytes Absolute Auto 1300 /uL (0-900); Monocytes Percent Auto 9.4 % (3-14); Neutrophils Absolute Auto 11700 /uL (1500-7000); Neutrophils Percent Auto 85.8 % (50-75); Platelet Count 137 X10^3/uL (150-400); Red Blood Cell Count 3.42 X10^6/uL (4.5-5.9); Red Cell Distribution Width 16.1 % (11.6-14.8); White Blood Cell Count 13.6 X10^3/uL (4.5-11.0)
[2024-01-02 08:05] LABS: Alanine Aminotransferase 33 IU/L (<50); Albumin Globulin Ratio 1.3 (1.0-2.8); Alkaline Phosphatase 96 U/L (38-126); Aspartate Aminotransferase 27 IU/L (17-59); BUN Creatinine Ratio 24.6 (6-22); Bilirubin Total 0.7 mg/dL (0.2-1.3); Blood Urea Nitrogen 28 mg/dL (9-20); Calcium 8.1 mg/dL (8.4-10.2); Carbon Dioxide 29 mmol/L (22-32); Chloride 107 mmol/L (98-107); Estimated Glomerular Filt Rate > 60 mL/min (>60); Globulin 2.3 g/dL (1.7-4.1); Glucose 146 mg/dL (80-110); HEMOLYSIS < 15 (0-50); Potassium 4.1 mmol/L (3.4-5.1); Sodium 136 mmol/L (137-145); Total Protein 5.3 g/dL (6.3-8.2)
[2024-01-02] MEDS: CELECOXIB 200 MG CAPSULE PO ×2 (08:41→20:25)
[2024-01-02] MEDS: GABAPENTIN 300 MG CAPSULE PO ×3 (08:43→20:24)
[2024-01-02] MEDS: EZETIMIBE 10 MG TABLET PO (08:43)
[2024-01-02] MEDS: HEPARIN 5,000 UNIT/ML VIAL 5000 UNIT SUBCUT ×2 (08:44→20:25)
[2024-01-02 13:33] VITALS: BP 107/56; PULSE 74; RESP 18; TEMP 36.7; O2SAT 93
--- NOTE | 2024-01-02 15:47 | CM.DPC ---
DCP Cont: Per RN, waiting for Surgeon to round to determine if pt medically stable to discharge. SW met briefly bedside with pt and supportive family members bedside and they confirm their preference is d/c home with family when stable before pt makes the trip back to [place] and they do not anticipate any d/c needs and pt confirms he has been independent and steady in the room. EVELYN Washington
--- NOTE | 2024-01-02 17:01 | P.PN_ITS ---
Subjective Subjective Date Patient Seen: 01/02/24 Time Patient Seen: 17:08 Interval history: Feeling better Exam Vital Signs (past 8 hours): - 01/02/24 13:33 Temperature 98.0 F Pulse Rate 74 Respiratory Rate 18 Blood Pressure 107/56 L Pulse Oximetry 93 Oxygen Flow Rate 0 Oxygen Delivery Method Nasal Cannula Oxygen Flow Rate 0 Narrative Exam Narrative: abd benign, drain bloody Objective Labs 01/02/24 07:34 01/02/24 07:34 Labs: Laboratory Results - last 24 hr 01/02/24 07:34 WBC 13.6 H RBC 3.42 L Hgb 9.8 L Hct 29.1 L MCV 85.1 MCH 28.5 MCHC 33.5 RDW 16.1 H Plt Count 137 L Neut % (Auto) 85.8 H Lymph % (Auto) 4.7 L [place] % (Auto) 9.4 Eos % (Auto) 0.0 L Baso % (Auto) 0.1 Neut # (Auto) 18918 H Lymph # (Auto) 600 L [place] # (Auto) 1300 H Eos # (Auto) 0 Baso # (Auto) 0 Sodium 136 L Potassium 4.1 Chloride 107 Carbon Dioxide 29 BUN 28 H Creatinine 1.14 Estimated GFR > 60 BUN/Creatinine Ratio 24.6 H Glucose 146 H Calcium 8.1 L Total Bilirubin 0.7 AST 27 ALT 33 Alkaline Phosphatase 96 Total Protein 5.3 L Albumin 3.0 L Globulin 2.3 Albumin/Globulin Ratio 1.3 PFSH Social History household members: spouse Smoking Status: Never smoker alcohol intake: never Assessment & Plan Post-op Postoperative Procedures: Procedures Operation Date: 01/01/24 09:00 Actual Procedure Side Surgeon p Laparoscopic Cholecystectomy Malena Cristina MD Postoperative status: doing well and anemia Postoperative status narrative: WBC still elevated Postoperative plan: routine post-op care Postoperative plan narrative: Cont IV antibiotics Time Spent With Patient Time with patient: 15-24 minutes
[2024-01-02] MEDS: ATORVASTATIN 20 MG TABLET 40 MG PO (20:25)
[2024-01-02] MEDS: SERTRALINE 50 MG TABLET 25 MG PO (20:25)
[2024-01-02] MEDS: polyethylene glycoL 3350 17 GM POWD.PACK PO (20:26)
[2024-01-02 21:17] VITALS: BP 107/65; PULSE 77; RESP 16; TEMP 36.9; O2SAT 95
[2024-01-03] MEDS: HYDROCODONE/ACET 5/325 TABLET 2 TAB PO ×2 (00:06→08:40)
[2024-01-03] MEDS: PANTOPRAZOLE DR 20 MG TABLET PO (05:04)
[2024-01-03] MEDS: PIPERACILLIN/TAZO 3.375 GM in SODIUM CHLORIDE 0.9% 100 ML IV (05:04)
[2024-01-03 05:53] LABS: Add Manual Diff / Slide Review NO; Basophils Absolute Auto 0 /uL (0-100); Basophils Percent Auto 0.2 % (0-2); Eosinophils Absolute Auto 100 /uL (0-450); Eosinophils Percent Auto 0.5 % (2-4); Hematocrit 26.7 % (41-53); Hemoglobin 9.1 g/dL (13.5-17.5); Lymphocytes Absolute Auto 1100 /uL (1100-4500); Lymphocytes Percent Auto 9.4 % (25-40); Mean Corpuscular Hemoglobin 28.8 PG (26-34); Mean Corpuscular Volume 84.6 fL (80-100); Monocytes Absolute Auto 900 /uL (0-900); Monocytes Percent Auto 7.8 % (3-14); Neutrophils Absolute Auto 9600 /uL (1500-7000); Neutrophils Percent Auto 82.1 % (50-75); Platelet Count 161 X10^3/uL (150-400); Red Blood Cell Count 3.15 X10^6/uL (4.5-5.9); Red Cell Distribution Width 15.7 % (11.6-14.8); White Blood Cell Count 11.7 X10^3/uL (4.5-11.0)
[2024-01-03 08:00] VITALS: BP 137/63; PULSE 78; RESP 16; TEMP 36; O2SAT 96
[2024-01-03 08:36] VITALS: BP 176/90
[2024-01-03] MEDS: GABAPENTIN 300 MG CAPSULE PO (08:36)
[2024-01-03] MEDS: EZETIMIBE 10 MG TABLET PO (08:36)
[2024-01-03] MEDS: AMOXICILLIN/CLAV 875/125 MG 1 TAB PO ×2 (08:36→09:09)
[2024-01-03] MEDS: CELECOXIB 200 MG CAPSULE PO (08:36)
[2024-01-03] MEDS: LOSARTAN 50 MG TABLET PO (08:36)
[2024-01-03] MEDS: IBUPROFEN 600 MG TABLET PO (08:39)
--- NOTE | 2024-01-03 10:38 | PC.NURSE ---
Pt is dressed and ready for discharge home with family. IV has been removed. Dsg's have been changed. TASHIA drain has been removed. Went over d/c instructions with Pt and Spouse-discussed d/c meds, time of last dose, reviewed stroke education, s/s of infection, encouraged Pt to drink plenty of fluids to prevent constipation or dehydration and take medications as prescribed. Pt to call Dr. Cristina for follow up or any issues and her phone number was provided. Pt denied further questions and was taken out via w/c by [employer] to POV with Family and all belongings.
--- NOTE | 2024-01-03 14:18 | CM.DPC ---
DCP Discharge Home Per Surgeon, pt is now medically stable to d/c home today as pt tolerating diet and ambulating and voiding independently and no identified barriers to discharge. Pt agreeable with d/c home today and confirms family can provide transport today and no discharge needs or concerns. EVELYN Washington
--- NOTE | 2024-01-08 10:22 | PM.DS.1 ---
History of Present Illness History of Present Illness Date Patient Seen: 01/03/24 Time Patient Seen: 11:00 Chief complaint: chest pain/trunk pain/fever Narrative: Seen previously for same pain, Normal US and labs, not cardiac. Pain returned with eating oysters. RUQ sharp and dull. anorexia. CT scan concerning for cholecystitis w/o stones. Discharge Providers Provider Date of admission: 12/31/23 20:36 Discharge Date: 01/03/24 Discharge provider: Malena Cristina MD Summary Hospital Course Discharge Diagnosis: gangrenous acalculus cholecystitis with h/o DVT s/p Lap piper Hospital Course: Admitted for IV antibiotics followed by Lap piper. IV antibiotics continued until WBC normalized Heparin 5000u BID Discharged on antibiotics for another 5 days. Status at Discharge Cognitive/behavioral status at discharge: at baseline, oriented Functional status at discharge: independent ambulation Overall status at discharge: patient is progressing back to baseline Time Spent with Patient Time spent: Less than 30 minutes Exam Vital Signs (past 8 hours): Oxygen Delivery Method Room Air Oxygen Flow Rate 0 Narrative Exam Narrative: see progress note Objective Labs 01/03/24 05:00 01/02/24 07:34 [facility] Social History household members: spouse Smoking Status: Never smoker alcohol intake: never Discharge Assessment & Plan Assessment and Plan Assessment: s/p lap piepr for acalculous cholecystitis. Plan of Treatment: Discharge home, no follow up needed. Will give dose of Lovenox morning of discharge as patient has [address] Discharge Plan Discharge Plan Patient Disposition: Home Provider Discharge Comment: don't take Metoprolol for 3 more days. check BP daily if possible Discharge orders & Medications Prescriptions: New hydrocodone-acetaminophen 5-325 mg Tablet 2 tab PO Q6-12H PRN (Reason: Pain, Severe (7-10)) Qty: 30 0RF ibuprofen 600 mg Tablet 600 mg PO Q6H Qty: 200 0RF amoxicillin-pot clavulanate 875-125 mg Tablet 1 tab PO BID Qty: 10 0RF Continued losartan 50 mg tablet 50 mg PO DAILY metoprolol succinate 50 mg tablet extended release 24 hr 50 mg PO BID sertraline 25 mg tablet 25 mg PO DAILY omeprazole 20 mg capsule,delayed release(DR/EC) 20 mg PO DAILY ezetimibe 10 mg tablet 10 mg PO DAILY rosuvastatin 20 mg tablet 20 mg PO ONCE PM tadalafil 2.5 mg Tablet 2.5 mg PO DAILY PRN (Reason: Sexual Activity) Rx Instructions: administer approximately 30min before sexual activity; do not use more than 1 dose per 24hrs dapagliflozin propanediol [Farxiga] 10 mg tablet 10 mg PO DAILY Follow up/Referrals: Malena Cristina MD [Physician] - Activity Restrictions/Additional Instructions: No lifting more than 15 lbs for 4 weeks Diet/Activity/Treatments Diet: Diet as Tolerated Diet comment: lots of fluids and protein. add multi vitamen w iron Skin/Wound/Dressing Care Report to your healthcare provider any signs of infection, such as:: chills, fever, increased pain, unusual drainage and unusual redness Dressing: remove outer dressing and shower, leave steri strips for 10 days Visit Report/Discharge Packet Instructions: DI for Prescription Opioid Use, Amoxicillin and Clavulanic Acid, DI for Laparoscopic Cholecystectomy, [facility]: Wound Care, Hydrocodone/Acetaminophen (By mouth) Stand Alone Forms: Patient Portal/API, Stroke Signs & Symptoms, Surgery Discharge
== END 2024-01-03 10:50 | disposition home or self-care (01) | DRG 419 ==
LOC: ED 20:36 → AC 20:37
PROVIDERS: Admitting Provider Surgery; Emergency Provider Emergency Medicine; Referring Provider Emergency Medicine; Visit Provider Surgery
PROC: 0FT44ZZ Resection of Gallbladder, Percutaneous Endoscopic Approach (ICD-10-PCS; CPT 47562; principal; 2024-01-01 09:00)
DX: K81.0 Acute cholecystitis (principal); K82.A1 Gangrene of gallbladder in cholecystitis; I10 Essential (primary) hypertension; R07.89 Other chest pain; K76.89 Other specified diseases of liver
CPT/HCPCS: 36415; 71045; 71275; 74174; 76705; 80053; 81003; 81015; 82550; 83605; 83690; 83735; 84145; 84484; 85025; 85379; 85610; 85730; 87040; 93005; 96365; 96374; 96375; 99284; C9113; J0136; J0171; J1100; J1170; J1644; J1650; J1885; J2270; J2405; J2543; J2704; J3410; J3490; Q9967